=== PATIENT | female | born 1970 | race Caucasian/White ===

== ENCOUNTER 2017-12-19 14:03 | Emergency (ER) | payer SELFPAY ==
[2017-12-19] MEDS ORDERED: FENTANYL CITRATE INJ/PF 100 MCG/2 ML AMPUL IV ONE ×2 (14:40→15:33)
[2017-12-19] MEDS ORDERED: RINGERS SOLUTION,LACTATED 1,000 ML IV ONE (14:40)
[2017-12-19] MEDS ORDERED: ONDANSETRON HCL INJ/PF 4 MG/2 ML SDV IV ONE (14:40)
--- NOTE | 2017-12-19 14:42 | ER Document Report ---
ED Medical Screen (RME) - General Chief Complaint: Possible Kidney Stone Stated Complaint: FLANK PAIN Time Seen by Provider: 12/19/17 14:36 Notes: RAPID MEDICAL EVALUATION DISCLOSURE I have seen this patient as part of a Rapid Medical Evaluation and, if applicable, placed any initially appropriate orders. The patient will be seen and fully evaluated, including a full history and physical exam, by a provider ( in Main ED or Fast Track) when a room becomes available. 47-year-old female here with complaints of right back and right lower quadrant abdominal pain that started yesterday and has progressively worsened. She is also having nausea dysuria and darker than usual urine. Denies vomiting diarrhea fevers chills. Has prior history of kidney stones and states this feels very much the same. Last kidney stone was 2 years ago. EXAM Mild to moderate TTP RLQ No CVA tenderness TRAVEL OUTSIDE OF THE [place] IN LAST 30 DAYS: No - Related Data Allergies/Adverse Reactions: No Known Allergies Allergy (Unverified 12/19/17 14:05) Physical Exam - Vital signs Vitals: Temp Pulse Resp BP Pulse Ox 98.3 F 65 14 125/85 97 12/19/17 14:16 12/19/17 14:16 12/19/17 14:16 12/19/17 14:16 12/19/17 14:16 Course - Vital Signs Vital signs: Temp Pulse Resp BP Pulse Ox 98.3 F 65 14 125/85 97 12/19/17 14:16 12/19/17 14:16 12/19/17 14:16 12/19/17 14:16 12/19/17 14:16
[2017-12-19 15:20] LABS: ABSOLUTE EOSINOPHILS # (AUTO) 0.1 10^3/uL (0.0-0.6); ABSOLUTE LYMPHOCYTES (AUTO) 2.5 10^3/uL (0.5-4.7); ABSOLUTE MONOCYTES (AUTO) 0.3 10^3/uL (0.1-1.4); ABSOLUTE NEUT (AUTO) 2.9 10^3/uL (1.7-8.2); APPEARANCE,URINE CLEAR; BASOPHILS % (AUTO) 0.6 % (0-2); BILIRUBIN,URINE NEGATIVE (NEGATIVE); COLOR,URINE STRAW; EOSINOPHILS % (AUTO) 2.1 % (0-6); GLUCOSE, URINE NEGATIVE (NEGATIVE); HEMATOCRIT 42.3 % (36.0-47.0); HEMOGLOBIN 14.6 g/dL (12.0-15.5); KETONES,URINE NEGATIVE (NEGATIVE); LEUKOCYTE ESTERASE,URINE NEGATIVE (NEGATIVE); LYMPHOCYTES % (AUTO) 42.8 % (13-45); MEAN CORPUSCULAR HEMOGLOBIN 31.6 pg (27.0-33.4); MEAN CORPUSCULAR HGB CONC 34.5 g/dL (32.0-36.0); MEAN CORPUSCULAR VOLUME 92 fl (80-97); MONOCYTES % (AUTO) 5.1 % (3-13); NITRITE,URINE NEGATIVE (NEGATIVE); PLATELET COUNT 221 10^3/uL (150-450); PROTEIN,URINE NEGATIVE (NEGATIVE); RED BLOOD COUNT 4.63 10^6/uL (3.72-5.28); RED CELL DISTRIBUTION WIDTH 12.8 % (11.5-14.0); SEGMENTED NEUTROPHILS % (AUTO) 49.4 % (42-78); TOTAL CELLS COUNTED % (AUTO) 100 %; URINE SPECIFIC GRAVITY 1.011; UROBILINOGEN,URINE NEGATIVE mg/dL (<2.0); WHITE BLOOD COUNT 5.8 10^3/uL (4.0-10.5)
[2017-12-19 15:37] LABS: ANION GAP 12 (5-19); BLOOD UREA NITROGEN 14 mg/dL (7-20); CALCIUM 10.1 mg/dL (8.4-10.2); CARBON DIOXIDE 27 mmol/L (22-30); CHLORIDE 106 mmol/L (98-107); GLUCOSE 89 mg/dL (75-110); SODIUM 145.2 mmol/L (137-145)
--- NOTE | 2017-12-19 16:18 | RADIOLOGY REPORT (SQ) ---
EXAM DESCRIPTION: CT LTD RENAL STONE PROTOCOL ON COMPLETED DATE/TIME: 12/19/2017 3:59 pm REASON FOR STUDY: right flank pain COMPARISON: None. TECHNIQUE: CT scan of the abdomen and pelvis performed without intravenous or oral contrast. Images reviewed with lung, soft tissue, and bone windows. Reconstructed coronal and sagittal MPR images revi ewed. All images stored on PACS. All CT scanners at this facility use dose modulation, iterative reconstruction, and/or weight based d osing when appropriate to reduce radiation dose to as low as reasonably achievable (ALARA). [facility]: Dose Right [facility]: CareDose [facility]: Dose Right [facility]: Teradose 4D [facility]: [employer] RADIATION DOSE: mGy. LIMITATIONS: None. FINDINGS: LOWER CHEST: No significant findings. No nodules or infiltrates. NON-CONTRASTED LIVER, SPLEEN, ADRENALS: Evaluation limited by lack of IV contrast. No identified sign ificant masses. PANCREAS: No masses. No peripancreatic inflammatory changes. GALLBLADDER: No identified stones by CT criteria. No inflammatory changes to suggest cholecystitis. RIGHT KIDNEY AND URETER: No suspicious masses. Assessment limited by lack of IV contrast. No signif icant calcifications. No hydronephrosis or hydroureter. LEFT KIDNEY AND URETER: No suspicious masses. Assessment limited by lack of IV contrast. No signifi cant calcifications. No hydronephrosis or hydroureter. AORTA AND RETROPERITONEUM: No aneurysm. No retroperitoneal masses or adenopathy. BOWEL AND PERITONEAL CAVITY: No obvious masses or inflammatory changes. No free fluid. APPENDIX: Status post appendectomy. PELVIS, BLADDER, AND ABDOMINAL WALL:No abnormal masses. No free fluid. Bladder normal. BONES: No significant findings. OTHER: No other significant finding. IMPRESSION: NO SIGNIFICANT OR ACUTE PROCESS IN THE ABDOMEN OR PELVIS. COMMENT: Quality ID # [id number]: Final reports with documentation of one or more dose reduction techniques (e.g., Automated exposure control, adjustment of the mA and/or kV according to patient size, use of iterative reconstruction technique) TECHNICAL DOCUMENTATION: JOB ID: [id number] [employer]- All Rights Reserved Reading location - IP/workstation name: [email or web address]
--- NOTE | 2017-12-19 16:36 | ER Document Report ---
ED GI/ - General Chief Complaint: Possible Kidney Stone Stated Complaint: FLANK PAIN Time Seen by Provider: 12/19/17 14:36 Mode of Arrival: Ambulatory Information source: Patient Notes: Patient is a 47-year-old female who presents to the ER today for right flank pain that started yesterday radiating around to the right lower abdomen. Patient admits that it is difficult to urinate but denies any blood in her urine or burning with urination. Patient has a history of kidney stones states that this feels exactly the same. She denies any vomiting but admits to nausea. She denies any fevers or chills although she is going through menopause and has hot flashes. TRAVEL OUTSIDE OF THE [place] IN LAST 30 DAYS: No - Related Data Allergies/Adverse Reactions: No Known Allergies Allergy (Unverified 12/19/17 14:05) Home Medications: no medications Past Medical History - General Information source: Patient - Social History Smoking Status: Current Every Day Smoker Chew tobacco use (# tins/day): No Frequency of alcohol use: None Drug Abuse: None Family History: Reviewed & Not Pertinent Patient has suicidal ideation: No Patient has homicidal ideation: No Renal/ Medical History: Reports: Hx Kidney Stones. Denies: Hx Peritoneal Dialysis Past Surgical History: Reports: Hx Hysterectomy Review of Systems - Review of Systems Constitutional: No symptoms reported EENT: No symptoms reported Cardiovascular: No symptoms reported Respiratory: No symptoms reported Gastrointestinal: No symptoms reported Genitourinary: See HPI Female Genitourinary: No symptoms reported Musculoskeletal: No symptoms reported Skin: No symptoms reported Hematologic/Lymphatic: No symptoms reported Neurological/Psychological: No symptoms reported Physical Exam - Vital signs Vitals: Temp Pulse Resp BP Pulse Ox 98.3 F 65 14 125/85 97 12/19/17 14:16 12/19/17 14:16 12/19/17 14:16 12/19/17 14:16 12/19/17 14:16 - Notes Notes: PHYSICAL EXAMINATION: GENERAL: Uncomfortable appearing, but in no acute distress. HEAD: Atraumatic, normocephalic. EYES: Pupils equal round and reactive to light, extraocular movements intact, sclera anicteric, conjunctiva are normal. NECK: Normal range of motion, supple without lymphadenopathy LUNGS: CTAB and equal. No wheezes rales or rhonchi. HEART: Regular rate and rhythm without murmurs ABDOMEN: Soft, suprapubic and right lower quadrant tenderness. No guarding, no rebound BACK: no vertebral tenderness, normal ROM GI/: Right CVA tenderness EXTREMITIES: Normal range of motion, no pitting edema. No cyanosis. NEUROLOGICAL: Cranial nerves grossly intact. Normal sensory/motor exams. PSYCH: Normal mood, normal affect. SKIN: Warm, Dry, normal turgor, no rashes or lesions noted Course - Re-evaluation Re-evalutation: 12/19/17 16:50 Urinalysis reveals moderate amount of blood, patient reports migration from the right flank to the right lower quadrant, appendix surgically absent on CAT scan today, otherwise CAT scan without contrast reveals no acute pathology such as a stone. Patient has received IV fluids, pain medication and nausea medication and is feeling better. I did give her urology follow-up and she will go home with a strainer as well as Flomax, pain medication and nausea medication if needed. She is advised to follow-up with urology in 7 days if pain continues and she feels like she is not passing the stone. - Vital Signs Vital signs: Temp Pulse Resp BP Pulse Ox 98.2 F 61 13 137/88 H 100 12/19/17 17:22 12/19/17 17:22 12/19/17 17:22 12/19/17 17:22 12/19/17 17:22 - Laboratory Result Diagrams: 12/19/17 15:05 12/19/17 15:05 Laboratory results interpreted by me: 12/19/17 12/19/17 15:05 15:05 Sodium 145.2 H Urine Blood MODERATE H Discharge - Discharge Clinical Impression: Kidney stone Condition: Stable Disposition: HOME, SELF-CARE Additional Instructions: Return immediately for any new or worsening symptoms. Follow up with primary care provider, call tomorrow to make followup appointment. Prescriptions: Ondansetron [Zofran Odt 4 mg Tablet] 1 - 2 tab PO Q4H PRN #15 tab.rapdis PRN Reason: For Nausea/Vomiting Oxycodone HCl/Acetaminophen [Percocet 5-325 mg Tablet] 1 - 2 tab PO Q4H PRN #15 tablet PRN Reason: Tamsulosin HCl [Flomax 0.4 mg Cap.sr] 0.4 mg PO DAILY #7 cap.sr.24h Forms: Return to Work Referrals: BRANDIE ACKERMAN, [TERENCE BURTON] - Follow up as needed
[2017-12-19 17:25] VITALS: BP 137/88
== END 2017-12-19 17:24 | disposition home or self-care (01) ==
LOC: ER 14:03
DX: N20.0 Calculus of kidney (principal); R10.31 Right lower quadrant pain; F17.200 Nicotine dependence, unspecified, uncomplicated; Z87.442 Personal history of urinary calculi; Z90.710 Acquired absence of both cervix and uterus
CPT/HCPCS: 96376; 99284; 96361; 96374; 96375; 36415; 85025; 81025; 80048; 81001; 76380; J3010; J2405; J7120

== ENCOUNTER 2018-02-22 06:13 | Emergency (ER) | payer SELFPAY ==
[2018-02-22 07:02] LABS: APPEARANCE,URINE CLEAR; BILIRUBIN,URINE NEGATIVE (NEGATIVE); COLOR,URINE YELLOW; GLUCOSE, URINE NEGATIVE (NEGATIVE); KETONES,URINE NEGATIVE (NEGATIVE); LEUKOCYTE ESTERASE,URINE NEGATIVE (NEGATIVE); NITRITE,URINE NEGATIVE (NEGATIVE); PROTEIN,URINE NEGATIVE (NEGATIVE); URINE SPECIFIC GRAVITY 1.011; UROBILINOGEN,URINE NEGATIVE mg/dL (<2.0)
[2018-02-22] MEDS ORDERED: OXYCODONE-ACETAMINOPHEN 5-325 MG TABLET PO ONE (07:45)
--- NOTE | 2018-02-22 08:32 | RADIOLOGY REPORT (SQ) ---
EXAM DESCRIPTION: CHEST 2 VIEWS COMPLETED DATE/TIME: 02/22/2018 8:21 am REASON FOR STUDY: left upper back pain, hematuria, hx stones COMPARISON: None. EXAM PARAMETERS: NUMBER OF VIEWS: two views TECHNIQUE: Digital Frontal and Lateral radiographic views of the chest acquired. RADIATION DOSE: NA LIMITATIONS: none FINDINGS: LUNGS AND PLEURA: No opacities, masses or pneumothorax. No pleural effusion. MEDIASTINUM AND HILAR STRUCTURES: No masses or contour abnormalities. HEART AND VASCULAR STRUCTURES: Heart normal size. No evidence for failure. BONES: No acute findings. HARDWARE: None in the chest. OTHER: No other significant finding. IMPRESSION: NO ACUTE RADIOGRAPHIC FINDING IN THE CHEST. TECHNICAL DOCUMENTATION: JOB ID: [id number] [employer]- All Rights Reserved Reading location - IP/workstation name: [email or web address]
--- NOTE | 2018-02-22 08:34 | RADIOLOGY REPORT (SQ) ---
EXAM DESCRIPTION: KUB/ABDOMEN (SINGLE VIEW) COMPLETED DATE/TIME: 02/22/2018 8:21 am REASON FOR STUDY: left upper back pain, hematuria, hx stones COMPARISON: None. NUMBER OF VIEWS: One view. TECHNIQUE: Supine radiographic image of the abdomen acquired. LIMITATIONS: None. FINDINGS: BOWEL GAS PATTERN: There is scattered gas and fecal material within the colon. Scattered small bowel gas seen. No pneumoperitoneum. CALCIFICATIONS: No suspicious calcifications. SOFT TISSUES: No gross mass or suggestion of organomegaly. HARDWARE: None in the abdomen. BONES: No acute fracture. No worrisome bone lesions. OTHER: No other significant finding. IMPRESSION: Nonspecific bowel-gas pattern. TECHNICAL DOCUMENTATION: JOB ID: [id number] 2010 [employer]- All Rights Reserved Reading location - IP/workstation name: [email or web address]
--- NOTE | 2018-02-22 09:25 | ER Document Report ---
ED Neck/Back Problem - General Chief Complaint: Back Pain Stated Complaint: BACK PAIN Time Seen by Provider: 02/22/18 07:10 Mode of Arrival: Ambulatory Information source: Patient Notes: Patient is a 47-year-old female who has a history of kidney stones who presents to the ER today for left upper back/flank pain radiating around to the left side since yesterday. Patient admits to nausea but no vomiting. She denies any dysuria but states it is darker in color and she thinks it may be blood. Patient denies any vaginal bleeding, abnormal vaginal discharge, difficulty with breathing or taking a deep breath, history of pancreatitis, alcohol drinking. TRAVEL OUTSIDE OF THE [place] IN LAST 30 DAYS: No - Related Data Allergies/Adverse Reactions: No Known Allergies Allergy (Unverified 12/19/17 14:05) Home Medications: pt denies any home meds Past Medical History - General Information source: Patient - Social History Smoking Status: Current Every Day Smoker Chew tobacco use (# tins/day): No Frequency of alcohol use: None Drug Abuse: None Family History: Reviewed & Not Pertinent Patient has suicidal ideation: No Patient has homicidal ideation: No Renal/ Medical History: Reports: Hx Kidney Stones. Denies: Hx Peritoneal Dialysis Past Surgical History: Reports: Hx Appendectomy, Hx Hysterectomy Review of Systems - Review of Systems Constitutional: No symptoms reported EENT: No symptoms reported Cardiovascular: No symptoms reported Respiratory: No symptoms reported Gastrointestinal: No symptoms reported Genitourinary: See HPI Female Genitourinary: No symptoms reported Musculoskeletal: No symptoms reported Skin: No symptoms reported Hematologic/Lymphatic: No symptoms reported Neurological/Psychological: No symptoms reported Physical Exam - Vital signs Vitals: Temp Pulse Resp BP Pulse Ox 97.9 F 72 18 123/88 H 97 02/22/18 06:19 02/22/18 06:19 02/22/18 06:19 02/22/18 06:19 02/22/18 06:19 - Notes Notes: PHYSICAL EXAMINATION: GENERAL: Uncomfortable appearing, but in no acute distress. HEAD: Atraumatic, normocephalic. EYES: Pupils equal round and reactive to light, extraocular movements intact, sclera anicteric, conjunctiva are normal. NECK: Normal range of motion, supple without lymphadenopathy LUNGS: CTAB and equal. No wheezes rales or rhonchi. HEART: Regular rate and rhythm without murmurs ABDOMEN: Soft, no tenderness. No guarding, no rebound BACK: no vertebral tenderness, normal ROM GI/: Left CVA tenderness EXTREMITIES: Normal range of motion, no pitting edema. No cyanosis. NEUROLOGICAL: Cranial nerves grossly intact. Normal sensory/motor exams. PSYCH: Normal mood, normal affect. SKIN: Warm, Dry, normal turgor, no rashes or lesions noted Course - Re-evaluation Re-evalutation: 02/23/18 11:08 Urinalysis shows large amount of blood no signs of infection. Abdominal KUB and chest x-ray reports no acute pathology. I will treat patient for probable kidney stone and have her follow-up with urology. She has never had to have surgery to remove kidney stone she is always passed them on her own. - Vital Signs Vital signs: Temp Pulse Resp BP Pulse Ox 97.5 F 58 L 18 142/82 H 100 02/22/18 09:35 02/22/18 09:35 02/22/18 09:35 02/22/18 09:35 02/22/18 09:35 - Laboratory Laboratory results interpreted by me: 02/22/18 06:48 Urine Blood MODERATE H Discharge - Discharge Clinical Impression: Upper back pain on left side Condition: Stable Disposition: HOME, SELF-CARE Additional Instructions: Return immediately for any new or worsening symptoms. Follow up with primary care provider, call tomorrow to make followup appointment. Prescriptions: Hydrocodone/Acetaminophen [[place] 5-325 mg Tablet] 1 tab PO Q4 PRN #15 tablet PRN Reason: Forms: Return to Work Referrals: BRANDIE ACKERMAN DO [TERENCE BURTON] - Follow up as needed
[2018-02-22 10:11] VITALS: BP 142/82
== END 2018-02-22 09:37 | disposition home or self-care (01) ==
LOC: ER 06:13
DX: M54.89 Other dorsalgia (principal); R10.9 Unspecified abdominal pain; R31.9 Hematuria, unspecified; R11.0 Nausea; F17.200 Nicotine dependence, unspecified, uncomplicated; Z87.442 Personal history of urinary calculi; Z90.49 Acquired absence of other specified parts of digestive tract; Z90.710 Acquired absence of both cervix and uterus
CPT/HCPCS: 71046; 74018; 81001; 99284

== ENCOUNTER 2018-05-17 22:31 | Emergency (ER) | payer SELFPAY ==
[2018-05-17] MEDS ORDERED: ONDANSETRON HCL INJ/PF 4 MG/2 ML SDV IV ONE (23:09)
[2018-05-17] MEDS ORDERED: KETOROLAC TROMETHAMINE INJ/PF 30 MG/1 ML SDV IV ONE (23:09)
[2018-05-17] MEDS ORDERED: NORMAL SALINE 1000 ML 1,000 ML IV ONE (23:09)
--- NOTE | 2018-05-17 23:09 | ER Document Report ---
ED General - General Chief Complaint: Flank Pain Stated Complaint: PAINFUL URINATION Time Seen by Provider: 05/17/18 22:55 Notes: Patient is a 47-year-old female without chronic medical problems who presents with 2-3 days of bilateral flank pain, worse on the right with associated urinary urgency and hesitancy. She reports this feels similar to when she has been diagnosed with kidney stones in the past. Nothing improves or worsens her pain which she does describe as a stabbing, aching, constant pain to her bilateral flanks and suprapubic region. She has not noted any hematuria or cloudiness to the urine. No fever or constitutional symptoms. She has not seen her general doctor regarding today's concerns. TRAVEL OUTSIDE OF THE [place] IN LAST 30 DAYS: No - Related Data Allergies/Adverse Reactions: No Known Allergies Allergy (Unverified 12/19/17 14:05) Past Medical History - General Information source: Patient - Social History Smoking Status: Current Every Day Smoker Frequency of alcohol use: None Drug Abuse: None Family History: Reviewed & Not Pertinent Renal/ Medical History: Reports: Hx Kidney Stones. Denies: Hx Peritoneal Dialysis Past Surgical History: Reports: Hx Appendectomy, Hx Hysterectomy Review of Systems - Review of Systems Notes: Constitutional: Negative for fever. HENT: Negative for sore throat. Eyes: Negative for visual changes. Cardiovascular: Negative for chest pain. Respiratory: Negative for shortness of breath. Gastrointestinal: Positive for bilateral flank pain and nausea Genitourinary: Positive for dysuria. Musculoskeletal: Negative for back pain. Skin: Negative for rash. Neurological: Negative for headaches, weakness or numbness. 10 point ROS negative except as marked above and in HPI. Physical Exam - Vital signs Vitals: Temp Pulse Resp BP Pulse Ox 98.3 F 77 16 134/91 H 98 05/17/18 22:50 05/17/18 22:50 05/17/18 22:50 05/17/18 22:50 05/17/18 22:50 Interpretation: Normal Notes: PHYSICAL EXAMINATION: GENERAL: Well-appearing, well-nourished and in no acute distress. HEAD: Atraumatic, normocephalic. EYES: Pupils equal round and reactive to light, extraocular movements intact, sclera anicteric, conjunctiva are normal. ENT: nares patent, oropharynx clear without exudates. Moist mucous membranes. NECK: Normal range of motion, supple without lymphadenopathy LUNGS: Breath sounds clear to auscultation bilaterally and equal. No wheezes rales or rhonchi. HEART: Regular rate and rhythm without murmurs ABDOMEN: Soft, nontender, normoactive bowel sounds. No guarding, no rebound. No masses appreciated. Bilateral CVA tenderness slightly worse than the right. EXTREMITIES: Normal range of motion, no pitting or edema. No cyanosis. NEUROLOGICAL: No focal neurological deficits. Moves all extremities spontaneously and on command. PSYCH: Normal mood, normal affect. SKIN: Warm, Dry, normal turgor, no rashes or lesions noted. Course - Re-evaluation Re-evalutation: 05/17/18 23:08 Patient presents with 24 hours of bilateral flank pain and suprapubic abdominal pain as well as urinary hesitancy and discomfort. She is otherwise nontoxic in appearance, no focal abdominal tenderness on exam. Mild bilateral flank tenderness worse towards the right. She has been seen twice within this year for similar presentations, had normal CT scan and no evidence of neither pyelonephritis nor kidney stones. Will obtain labs, provide IV fluids, Toradol and reassess 05/18/18 00:22 Labs, urinalysis completely unremarkable. Repeat abdominal exam remains benign without any focal tenderness. This appears very similar to patient's previous presentations in which she had flank tenderness but had no findings on imaging or laboratories. I recommended outpatient urology follow-up. At this point based on her labs, vitals, history I do not suspect any acute life-threatening pathology. I specifically do not suspect an acute appendicitis, biliary pathology, pancreatitis, nephrolithiasis, bowel obstruction or bowel perforation. At this time will discharge with return precautions and follow-up recommendations. Verbal discharge instructions given a the bedside and opportunity for questions given. Medication warnings reviewed. Patient is in agreement with this plan and has verbalized understanding of return precautions and the need for primary care follow-up in the next 24-72 hours. - Vital Signs Vital signs: Temp Pulse Resp BP Pulse Ox 97.6 F 52 L 17 156/89 H 100 05/18/18 00:39 05/18/18 00:39 10 00:39 05/18/18 00:39 05/18/18 00:39 - Laboratory Result Diagrams: 05/17/18 23:10 05/17/18 23:10 Laboratory results interpreted by me: 05/17/18 05/17/18 23:10 23:10 Glucose 65 L Calcium 10.3 H Urine Blood MODERATE H Urine Urobilinogen 2.0 H Discharge - Discharge Clinical Impression: Flank pain, Dysuria Condition: Good Disposition: HOME, SELF-CARE Additional Instructions: Your urine do not suggest either an infection or a kidney stone at this point. You are being treated empirically with antibiotics for possible infection based on your symptoms and a urine culture has been sent. Please follow-up with urology within the next 1-2 days. Return to emergency department immediately if you develop a fever greater than 100.4 F, nausea, vomiting, worsening pain, or any other symptoms that are worrisome to you. For your pain: Take ibuprofen 600 mg and acetaminophen 1000 mg every 6 hours together as needed for pain. Prescriptions: Cephalexin Monohydrate [Keflex 500 mg Capsule] 500 mg PO Q6H 7 Days capsule
[2018-05-17 23:22] LABS: HEMOGLOBIN 14.1 g/dL (12.0-15.5); MEAN CORPUSCULAR HEMOGLOBIN 32.1 pg (27.0-33.4); MEAN CORPUSCULAR HGB CONC 35.2 g/dL (32.0-36.0); MEAN CORPUSCULAR VOLUME 91 fl (80-97); PLATELET COUNT 196 10^3/uL (150-450); WHITE BLOOD COUNT 7.5 10^3/uL (4.0-10.5)
[2018-05-17 23:24] LABS: APPEARANCE,URINE CLEAR; BILIRUBIN,URINE NEGATIVE (NEGATIVE); COLOR,URINE YELLOW; GLUCOSE, URINE NEGATIVE (NEGATIVE); KETONES,URINE NEGATIVE (NEGATIVE); LEUKOCYTE ESTERASE,URINE NEGATIVE (NEGATIVE); NITRITE,URINE NEGATIVE (NEGATIVE); PROTEIN,URINE NEGATIVE (NEGATIVE); URINE SPECIFIC GRAVITY 1.016
[2018-05-17 23:32] LABS: ANION GAP 11 (5-19); BLOOD UREA NITROGEN 12 mg/dL (7-20); CALCIUM 10.3 mg/dL (8.4-10.2); CARBON DIOXIDE 25 mmol/L (22-30); CHLORIDE 105 mmol/L (98-107); GLUCOSE 65 mg/dL (75-110); POTASSIUM 3.8 mmol/L (3.6-5.0); SODIUM 141.1 mmol/L (137-145)
[2018-05-18] MEDS ORDERED: CEPHALEXIN 500 MG CAPSULE PO ONE (00:22)
[2018-05-18 00:44] VITALS: BP 156/89
== END 2018-05-18 00:38 | disposition home or self-care (01) ==
LOC: ER 22:31
DX: R10.30 Lower abdominal pain, unspecified (principal); R10.9 Unspecified abdominal pain; R30.0 Dysuria; R39.15 Urgency of urination; R39.11 Hesitancy of micturition; F17.200 Nicotine dependence, unspecified, uncomplicated
CPT/HCPCS: 99284; 96361; 96374; 96375; 36415; 87086; 85027; 80048; 81001; J1885; J2405; J7030

== ENCOUNTER 2019-03-10 16:10 | Emergency (ER) | payer SELFPAY ==
[2019-03-10 16:19] VITALS: BP 133/95
[2019-03-10] MEDS ORDERED: ONDANSETRON HCL INJ/PF 4 MG/2 ML SDV IV ONE (17:51)
[2019-03-10] MEDS ORDERED: NORMAL SALINE 1000 ML 1,000 ML IV ONE (17:51)
[2019-03-10] MEDS ORDERED: MORPHINE SULFATE 10 MG/ML INJ IV ONE ×2 (17:51→20:00)
--- NOTE | 2019-03-10 18:38 | ER Document Report ---
ED Medical Screen (RME) - General Chief Complaint: Abdominal Pain Stated Complaint: ABDOMINAL PAIN Time Seen by Provider: 03/10/19 17:43 Notes: Patient is a 48-year-old female who presents to the emergency department with chief complaints of left lower abdominal pain. States her pain started this morning. She had a normal bowel movement this morning. Denies any family history of bowel cancer. Denies any vomiting, but admits to some nausea. She really has not been eating today. Denies any vaginal discharge or dysuria. She had a hysterectomy with a left oophorectomy in 2003. Exam: Mildly tender left lower abdomen. I have greeted and performed a rapid initial assessment of this patient. A comprehensive ED assessment and evaluation of the patient, analysis of test results and completion of medical decision making process will be conducted by an additional ED providers. TRAVEL OUTSIDE OF THE [place] IN LAST 30 DAYS: No - Related Data Allergies/Adverse Reactions: No Known Allergies Allergy (Verified 03/10/19 16:11) Past Medical History - Social History Frequency of alcohol use: None Drug Abuse: None Renal/ Medical History: Reports: Hx Kidney Stones. Denies: Hx Peritoneal Dialysis Past Surgical History: Reports: Hx Appendectomy, Hx Hysterectomy Physical Exam - Vital signs Vitals: Temp Pulse Resp BP Pulse Ox 98.0 F 76 16 133/95 H 97 03/10/19 16:17 03/10/19 16:17 03/10/19 16:17 03/10/19 16:17 03/10/19 16:17 Course - Vital Signs Vital signs: Temp Pulse Resp BP Pulse Ox 98.0 F 76 16 133/95 H 97 03/10/19 16:17 03/10/19 16:17 03/10/19 16:17 03/10/19 16:17 03/10/19 16:17
[2019-03-10 18:48] LABS: ABSOLUTE BASOPHILS # (AUTO) 0.1 10^3/uL (0.0-0.2); ABSOLUTE EOSINOPHILS # (AUTO) 0.1 10^3/uL (0.0-0.6); ABSOLUTE LYMPHOCYTES (AUTO) 3.1 10^3/uL (0.5-4.7); ABSOLUTE MONOCYTES (AUTO) 0.3 10^3/uL (0.1-1.4); ABSOLUTE NEUT (AUTO) 3.3 10^3/uL (1.7-8.2); BASOPHILS % (AUTO) 0.8 % (0-2); EOSINOPHILS % (AUTO) 1.4 % (0-6); HEMATOCRIT 42.3 % (36.0-47.0); HEMOGLOBIN 14.6 g/dL (12.0-15.5); LYMPHOCYTES % (AUTO) 45.5 % (13-45); MEAN CORPUSCULAR HEMOGLOBIN 31.6 pg (27.0-33.4); MEAN CORPUSCULAR HGB CONC 34.6 g/dL (32.0-36.0); MEAN CORPUSCULAR VOLUME 92 fl (80-97); MONOCYTES % (AUTO) 4.2 % (3-13); PLATELET COUNT 202 10^3/uL (150-450); RED BLOOD COUNT 4.63 10^6/uL (3.72-5.28); RED CELL DISTRIBUTION WIDTH 13.3 % (11.5-14.0); SEGMENTED NEUTROPHILS % (AUTO) 48.1 % (42-78); TOTAL CELLS COUNTED % (AUTO) 100 %; WHITE BLOOD COUNT 6.9 10^3/uL (4.0-10.5)
[2019-03-10 19:02] LABS: APPEARANCE,URINE CLEAR; BILIRUBIN,URINE NEGATIVE (NEGATIVE); COLOR,URINE YELLOW; GLUCOSE, URINE NEGATIVE (NEGATIVE); KETONES,URINE NEGATIVE (NEGATIVE); LEUKOCYTE ESTERASE,URINE NEGATIVE (NEGATIVE); NITRITE,URINE NEGATIVE (NEGATIVE); PROTEIN,URINE NEGATIVE (NEGATIVE); URINE SPECIFIC GRAVITY 1.024; UROBILINOGEN,URINE NEGATIVE mg/dL (<2.0)
[2019-03-10 19:15] LABS: ALBUMIN 4.9 g/dL (3.5-5.0); ALKALINE PHOSPHATASE 75 U/L (38-126); ANION GAP 8 (5-19); ASPARTATE AMINO TRANSFERASE 41 U/L (14-36); BILIRUBIN,DIRECT 0.3 mg/dL (0.0-0.4); BILIRUBIN,TOTAL 0.7 mg/dL (0.2-1.3); BLOOD UREA NITROGEN 15 mg/dL (7-20); CALCIUM 10.8 mg/dL (8.4-10.2); CARBON DIOXIDE 29 mmol/L (22-30); CHLORIDE 106 mmol/L (98-107); GLUCOSE 90 mg/dL (75-110); TOTAL PROTEIN 7.7 g/dL (6.3-8.2)
--- NOTE | 2019-03-10 20:35 | ER Document Report ---
ED GI/ - General Chief Complaint: Abdominal Pain Stated Complaint: ABDOMINAL PAIN Time Seen by Provider: 03/10/19 17:43 Notes: Patient is a 48-year-old female who presents to the emergency department with a chief complaint of left lower quadrant pain. Patient states she woke up this morning around 5 AM and noticed a tight sharp constant pain to the left lower quadrant. Patient states she has had nausea without vomiting or diarrhea. Pat ient reports a decreased appetite due to the pain. Patient denies vaginal bleeding or discharge. Patient does report having a hysterectomy with a left oophorectomy. Patient denies fever or urinary symptoms. Patient states she has never had a colonoscopy in the past. Patient states her last bowel movement was earlier today and was normal for her. Patient denies of blood in the stool. Patient did take an ibuprofen without relief. Patient states 1 month ago she did notice some gelatin type consistency in her stool but did not report blood in the stool. Patient denies change in her diet. TRAVEL OUTSIDE OF THE [place] IN LAST 30 DAYS: No - Related Data Allergies/Adverse Reactions: No Known Allergies Allergy (Verified 03/10/19 16:11) Past Medical History - General Information source: Patient - Social History Smoking Status: Current Every Day Smoker Cigarette use (# per day): Yes - 1 ppd Smoking Education Provided: Yes Frequency of alcohol use: None Drug Abuse: None Lives with: Family Family History: Reviewed & Not Pertinent Patient has suicidal ideation: No Patient has homicidal ideation: No - Past Medical History Cardiac Medical History: Reports: None Pulmonary Medical History: Reports: None EENT Medical History: Reports: None Neurological Medical History: Reports: None Endocrine Medical History: Reports: None Renal/ Medical History: Reports: Hx Kidney Stones. Denies: Hx Peritoneal Dialysis Malignancy Medical History: Reports: None GI Medical History: Reports: None Musculoskeletal Medical History: Reports None Skin Medical History: Reports None Psychiatric Medical History: Reports: None Traumatic Medical History: Reports: None Infectious Medical History: Reports: None Past Surgical History: Reports: Hx Appendectomy, Hx Hysterectomy Review of Systems - Review of Systems Constitutional: No symptoms reported EENT: No symptoms reported Cardiovascular: No symptoms reported Respiratory: No symptoms reported Gastrointestinal: See HPI Genitourinary: No symptoms reported Female Genitourinary: No symptoms reported Musculoskeletal: No symptoms reported Skin: No symptoms reported Hematologic/Lymphatic: No symptoms reported Neurological/Psychological: No symptoms reported Physical Exam - Vital signs Vitals: Temp Pulse Resp BP Pulse Ox 98.0 F 76 16 133/95 H 97 03/10/19 16:17 03/10/19 16:17 03/10/19 16:17 03/10/19 16:17 03/10/19 16:17 Interpretation: Normal - Notes Notes: GENERAL: Well-appearing, well-nourished and in no acute distress. HEAD: Atraumatic, normocephalic. EYES: Pupils equal round and reactive to light, extraocular movements intact, sclera anicteric, conjunctiva are normal. ENT: TMs normal, nares patent, oropharynx clear without exudates. Moist mucous membranes. NECK: Normal range of motion, supple without lymphadenopathy or JVD. LUNGS: Breath sounds clear to auscultation bilaterally and equal. No wheezes rales or rhonchi. HEART: Regular rate and rhythm without murmurs, rubs or gallops. ABDOMEN: Soft, LLQ tenderness, normoactive bowel sounds. No guarding, no rebound. No masses appreciated. BACK: No cervical, thoracic, lumbar midline tenderness. No saddle anesthesia, normal distal neurovascular exam. GENITOURINARY: Deferred. EXTREMITIES: Normal range of motion, no pitting or edema. No clubbing or cyanosis. NEUROLOGICAL: Cranial nerves II through XII grossly intact. Normal speech, normal gait. PSYCH: Normal mood, normal affect. SKIN: Warm, Dry, normal turgor, no rashes or lesions noted. Course - Re-evaluation Re-evalutation: 03/10/19 20:34 Patient does have significant left lower quadrant tenderness. Patient denies a history of diverticulitis. Labs are unremarkable the urinalysis did not show an infection. I will obtain a CT of the abdomen with IV and oral contrast to rule out diverticulitis or perforation. Patient is in agreement with this plan. I did inform the patient if her CT scan is negative I will refer her to gastroenterology as she may require a colonoscopy if she continues to have this discomfort. 03/10/19 23:49 I did inform the patient of her negative CT results. I did inform her she may have a fatty liver. I did inform the patient that ultimately she may need a colonoscopy. I will refer her to gastroenterology. I did inform the patient to return immediately if her pain changes, becomes more consistent and severe, she develops rectal bleeding, vomiting develops a fever or any concerning signs or symptoms. - Vital Signs Vital signs: Temp Pulse Resp BP Pulse Ox 98.0 F 76 16 133/95 H 97 03/10/19 16:17 03/10/19 16:17 03/10/19 16:17 03/10/19 16:17 03/10/19 16:17 - Laboratory Result Diagrams: 03/10/19 18:40 03/10/19 18:40 Laboratory results interpreted by me: 03/10/19 03/10/19 03/10/19 18:40 18:40 18:40 Lymphocytes % 45.5 H Calcium 10.8 H AST 41 H Urine Blood MODERATE H 03/10/19 20:35 Laboratory 03/10/19 03/10/19 03/10/19 18:40 18:40 18:40 WBC 6.9 RBC 4.63 Hgb 14.6 Hct 42.3 MCV 92 MCH 31.6 MCHC 34.6 RDW 13.3 Plt Count 202 Seg Neutrophils % 48.1 Lymphocytes % 45.5 H Monocytes % 4.2 Eosinophils % 1.4 Basophils % 0.8 Absolute Neutrophils 3.3 Absolute Lymphocytes 3.1 Absolute Monocytes 0.3 Absolute Eosinophils 0.1 Absolute Basophils 0.1 Sodium 143.4 Potassium 5.0 Chloride 106 Carbon Dioxide 29 Anion Gap 8 BUN 15 Creatinine 0.70 Est GFR ( Amer) > 60 Est GFR (Non-Af Amer) > 60 Glucose 90 Calcium 10.8 H Total Bilirubin 0.7 Direct Bilirubin 0.3 Neonat Total Bilirubin Not Reportable Neonat Direct Bilirubin Not Reportable Neonat Indirect Bili Not Reportable AST 41 H ALT 25 Alkaline Phosphatase 75 Total Protein 7.7 Albumin 4.9 Urine Color YELLOW Urine Appearance CLEAR Urine pH 5.0 Ur Specific [place] 1.024 Urine Protein NEGATIVE Urine Glucose (UA) NEGATIVE Urine Ketones NEGATIVE Urine Blood MODERATE H Urine Nitrite NEGATIVE Urine Bilirubin NEGATIVE Urine Urobilinogen NEGATIVE Ur Leukocyte Esterase NEGATIVE Urine WBC (Auto) 2 Urine RBC (Auto) 4 U Hyaline Cast (Auto) 1 Squamous Epi Cells Auto <1 Urine Mucus (Auto) RARE Urine Ascorbic Acid NEGATIVE Patient's lab work does not show a leukocytosis or anemia. Patient does not have an alteration in her electrolytes or kidney function. Patient's liver enzymes are normal despite having a slightly elevated AST. Patient's urine did show moderate amount of blood but with only 4 red blood cells. Patient does not have a urinary tract infection. - Diagnostic Test Radiology results interpreted by me: 03/10/19 23:41 Abdomen/Pelvis CT 03/10/19 00:00 IMPRESSION: No acute abnormality within the abdomen or pelvis. Suspect hepatic steatosis. TECHNICAL DOCUMENTATION: Quality ID # 436: Final reports with documentation of one or more dose reduction techniques (e.g., Automated exposure control, adjustment of the mA and/or kV according to patient size, use of iterative reconstruction technique) copyright 2011 [employer]- All Rights Reserved Discharge - Discharge Clinical Impression: Left lower quadrant abdominal pain, Abdominal cramping Condition: Stable Disposition: HOME, SELF-CARE Additional Instructions: Today you were seen in the emergency department for abdominal pain. Your lab work was essentially unremarkable as well as your urine. There are no signs of infection at this time and the CAT scan of your abdomen was also normal. Ultimately you may need to seek services from gastroenterology who may suggest a colonoscopy. I have referred you to Dr. Hale and Dr. Garsia who are local market garden worker. Please return to the emergency department if you develop severe pain that becomes more severe, steady or becomes concentrated in one area, vomiting, blood in stool, fever or if your abdomen becomes more swollen and tender. Abdominal Pain There are many causes of abdominal pain. Pain can mean a serious problem requiring surgery (such as appendicitis). It can also be an innocent problem that goes away on its own (such as a viral infection). Often, time must pass to determine the cause of pain. The physician does not feel that hospitalization is necessary, at present. Things may change within the next 24 hours. Call the doctor or come back for re- examination if any problems occur, such as: (1) Pain that becomes more severe, steady, or becomes concentrated in one specific area. Also, pain that is more severe with movement or coughing. (2) Vomiting that persists or becomes more frequent. (3) Blood in the vomitus, urine, or bowel movements. Blood in the stool may have a tarry or black appearance. (4) Shaking chills or fever greater than 100 degrees F. (5) The abdomen becomes more distended or swollen. (6) Bowel movements cease. (7) Failure to improve as expected. Prescriptions: Dicyclomine HCl [Bentyl 20 mg Tablet] 20 mg PO QID #20 tablet Forms: Smoking Cessation Education Referrals: HARI VILLAGRAN MD [ACTIVE STAFF] - Follow up as needed RUBEN GARSIA MD [ACTIVE STAFF] - Follow up as needed
--- NOTE | 2019-03-10 23:16 | RADIOLOGY REPORT (SQ) ---
EXAM DESCRIPTION: CT ABDOMEN PELVIS WITH IV CONTRAST COMPLETED DATE/TME: 03/10/2019 00:00 CLINICAL HISTORY: 48 years, Female, llq pain COMPARISON: Prior CT from 12/19/2017. TECHNIQUE: Contrast enhanced CT of the abdomen/pelvis was performed. Coronal and sagittal reformations were created. Images stored on PACS. All CT scanners at this facility use dose modulation, iterative reconstruction, and/or weight based dosing when appropriate to reduce radiation dose to as low as reasonably achievable (ALARA). [facility]: Dose Right [facility]: CareDose [facility]: Dose Right [facility]: Teradose 4D [facility]: [employer] LIMITATIONS: None. FINDINGS: Limited evaluation of the lower chest reveals mild bibasilar atelectasis. Liver is diffusely low in attenuation relative to the spleen. No focal liver lesions are appreciated. The spleen, pancreas, gallbladder, and both adrenal glands appear normal. Both kidneys enhance symmetrically. No hydronephrosis or hydroureter. Urinary bladder is well distended and shows no suspicious finding. Small and large bowel appear normal. No evidence of bowel obstruction. Appendix is not visualized. However, no pericecal inflammatory changes are appreciated. Mild calcifications are noted about the bilateral common iliac arteries. No lymphadenopathy or drainable fluid collections. Uterus is absent. Neither ovary is visualized. Bone windows show no destructive osseous lesions. IMPRESSION: No acute abnormality within the abdomen or pelvis. Suspect hepatic steatosis. TECHNICAL DOCUMENTATION: Quality ID # 436: Final reports with documentation of one or more dose reduction techniques (e.g., Automated exposure control, adjustment of the mA and/or kV according to patient size, use of iterative reconstruction technique) copyright 2011 [employer]- All Rights Reserved
[2019-03-10] MEDS ORDERED: DICYCLOMINE HCL INJ 20 MG/2 ML AMPULE IM ONE (23:54)
== END 2019-03-11 01:20 | disposition home or self-care (01) ==
LOC: ER 16:10
DX: R10.32 Left lower quadrant pain (principal); R10.814 Left lower quadrant abdominal tenderness; R11.0 Nausea; R63.0 Anorexia; F17.210 Nicotine dependence, cigarettes, uncomplicated; Z90.49 Acquired absence of other specified parts of digestive tract; Z90.721 Acquired absence of ovaries, unilateral; Z87.442 Personal history of urinary calculi
CPT/HCPCS: 96376; 99284; 96361; 96374; 96375; 36415; 85025; 80053; 81001; 74177; J2270; J2405; J7030

== ENCOUNTER → 2019-05-01 | Outpatient (CLI) | payer OTHER ==
--- NOTE | 2019-05-01 09:07 | WOMENS IMAGING REPORT ---
EXAM DESCRIPTION: [place] BILATERAL SCREEN COMPLETED DATE/TIME: 05/01/2019 8:23 am REASON FOR STUDY: Z12.31 ENCOUNTER FOR SCREENING MAMMOGRAM FOR MALIGNANT NEOPLASM OF BREAST Z12.31 ENCNTR SCREEN MAMMOGRAM FOR MALIGNANT NEOPLASM OF OSMANY COMPARISON: None. EXAM PARAMETERS: Standard craniocaudal and mediolateral oblique views of each breast recorded using digital acquisition. Read with the assistance of CAD. .[facility] - [employer] Version 9.2 LIMITATIONS: None. FINDINGS: No suspicious masses, suspicious calcifications or architectural distortion. No areas of c oncern. IMPRESSION: Negative MAMMOGRAM. BIRADS 1 BREAST DENSITY: b. There are scattered areas of fibroglandular density. BIRAD: ASSESSMENT: 1 NEGATIVE RECOMMENDATION: ROUTINE SCREENING COMMENT: The patient has been notified of the results by letter per MQSA requirements. Additional no tification policies are in place for contacting patient with suspicious or incomplete findings. Quality ID #225: [employer] recommends an annual screening mammogram for women aged 40 years or over. This facility utilizes a reminder system to ensure that all patients receive reminder letters, and/or direct phone calls for appointments. This includes reminders for routine scr eening mammograms, diagnostic mammograms, or other Breast Imaging Interventions when appropriate. Th is patient will be placed in the appropriate reminder system. TECHNICAL DOCUMENTATION: FINDING NUMBER: (1) ASSESSMENT: (1) JOB ID: [id number] [employer]- All Rights Reserved Reading location - IP/workstation name: [email or web address]
== END ==
LOC: WI 07:53
PROVIDERS: ATTEND Family Medicine
DX: Z12.31 Encounter for screening mammogram for malignant neoplasm of breast (principal)
CPT/HCPCS: 77067

== ENCOUNTER 2019-06-26 17:23 | Emergency (ER) | payer OTHER ==
[2019-06-26 17:42] VITALS: BP 139/89
[2019-06-26] MEDS ORDERED: NORMAL SALINE 1000 ML 1,000 ML IV ONE (18:02)
[2019-06-26] MEDS ORDERED: ONDANSETRON HCL INJ/PF 4 MG/2 ML SDV IV ONE (18:03)
[2019-06-26] MEDS ORDERED: MORPHINE SULFATE 10 MG/ML INJ IV ONE (18:03)
--- NOTE | 2019-06-26 18:07 | ER Document Report ---
ED Medical Screen (RME) - General Chief Complaint: Flank Pain Stated Complaint: LEFT FLANK PAIN, ABDOMINAL PAIN Time Seen by Provider: 06/26/19 17:52 Primary Care Provider: VELASQUEZ VENCES MD [Primary Care Provider] - Follow up as needed Notes: Patient is a 48-year-old female who presents the emergency department with left lower quadrant abdominal pain. States that her symptoms started this morning. Denies any dysuria. Patient has history of kidney stones in the past. She has an appointment with GI for a preop colonoscopy. Patient has no family history of colon cancer. Exam: Abdomen very tender in the left lower quadrant. I have greeted and performed a rapid initial assessment of this patient. A comprehensive ED assessment and evaluation of the patient, analysis of test results and completion of medical decision making process will be conducted by an additional ED providers. TRAVEL OUTSIDE OF THE [place] IN LAST 30 DAYS: No - Related Data Allergies/Adverse Reactions: No Known Allergies Allergy (Verified 06/26/19 17:52) Past Medical History - Social History Frequency of alcohol use: None Drug Abuse: None Renal/ Medical History: Reports: Hx Kidney Stones. Denies: Hx Peritoneal Dialysis Malignancy Medical History: Reports: Hx Cervical Cancer Past Surgical History: Reports: Hx Appendectomy, Hx Hysterectomy Physical Exam - Vital signs Vitals: Temp Pulse Resp BP Pulse Ox 97.9 F 66 20 139/89 H 99 06/26/19 17:41 06/26/19 17:41 06/26/19 17:41 06/26/19 17:41 06/26/19 17:41 Course - Vital Signs Vital signs: Temp Pulse Resp BP Pulse Ox 97.9 F 66 20 139/89 H 99 06/26/19 17:41 06/26/19 17:41 06/26/19 17:41 06/26/19 17:41 06/26/19 17:41 Doctor's Discharge - Discharge Referrals: VELASQUEZ VENCES MD [Primary Care Provider] - Follow up as needed
[2019-06-26 18:27] LABS: ABSOLUTE BASOPHILS # (AUTO) 0.1 10^3/uL (0.0-0.2); ABSOLUTE EOSINOPHILS # (AUTO) 0.2 10^3/uL (0.0-0.6); ABSOLUTE LYMPHOCYTES (AUTO) 2.8 10^3/uL (0.5-4.7); ABSOLUTE MONOCYTES (AUTO) 0.3 10^3/uL (0.1-1.4); BASOPHILS % (AUTO) 0.9 % (0-2); EOSINOPHILS % (AUTO) 3.3 % (0-6); HEMATOCRIT 41.5 % (36.0-47.0); HEMOGLOBIN 14.4 g/dL (12.0-15.5); LYMPHOCYTES % (AUTO) 44.3 % (13-45); MEAN CORPUSCULAR HEMOGLOBIN 31.9 pg (27.0-33.4); MEAN CORPUSCULAR HGB CONC 34.8 g/dL (32.0-36.0); MEAN CORPUSCULAR VOLUME 92 fl (80-97); MONOCYTES % (AUTO) 4.4 % (3-13); PLATELET COUNT 198 10^3/uL (150-450); RED BLOOD COUNT 4.53 10^6/uL (3.72-5.28); SEGMENTED NEUTROPHILS % (AUTO) 47.1 % (42-78); TOTAL CELLS COUNTED % (AUTO) 100 %; WHITE BLOOD COUNT 6.4 10^3/uL (4.0-10.5)
[2019-06-26 18:31] LABS: APPEARANCE,URINE CLEAR; BILIRUBIN,URINE NEGATIVE (NEGATIVE); COLOR,URINE YELLOW; GLUCOSE, URINE NEGATIVE (NEGATIVE); KETONES,URINE NEGATIVE (NEGATIVE); PROTEIN,URINE NEGATIVE (NEGATIVE); URINE SPECIFIC GRAVITY 1.015; UROBILINOGEN,URINE NEGATIVE mg/dL (<2.0)
[2019-06-26 18:46] LABS: ALBUMIN 4.5 g/dL (3.5-5.0); ALKALINE PHOSPHATASE 67 U/L (38-126); ANION GAP 8 (5-19); ASPARTATE AMINO TRANSFERASE 29 U/L (14-36); BILIRUBIN,DIRECT 0.1 mg/dL (0.0-0.4); BILIRUBIN,TOTAL 0.4 mg/dL (0.2-1.3); BLOOD UREA NITROGEN 12 mg/dL (7-20); CALCIUM 9.8 mg/dL (8.4-10.2); CARBON DIOXIDE 24 mmol/L (22-30); CHLORIDE 106 mmol/L (98-107); GLUCOSE 85 mg/dL (75-110); POTASSIUM 4.1 mmol/L (3.6-5.0); TOTAL PROTEIN 7.4 g/dL (6.3-8.2)
--- NOTE | 2019-06-26 20:40 | RADIOLOGY REPORT (SQ) ---
EXAM DESCRIPTION: CT ABDOMEN PELVIS WITH IV CONTRAST COMPLETED DATE/TME: 06/26/2019 18:02 CLINICAL HISTORY: 48 years, Female, LLQ abd pain COMPARISON: Prior study from 03/10/2019 TECHNIQUE: Contrast enhanced CT of the abdomen/pelvis was performed. 100 mL of Omnipaque 350 intravenous contrast was administered. Images stored on PACS. All CT scanners at this facility use dose modulation, iterative reconstruction, and/or weight based dosing when appropriate to reduce radiation dose to as low as reasonably achievable (ALARA). [facility]: Dose Right [facility]: CareDose [facility]: Dose Right [facility]: Teradose 4D [facility]: [employer] LIMITATIONS: None. FINDINGS: Limited evaluation of the lower chest reveals bands of opacity about both lower lobes, indicating areas of atelectasis and/or scar. The liver, spleen, pancreas, both adrenal glands, and gallbladder appear normal. Both kidneys enhance symmetrically. However, the left kidney appears to contain a subcentimeter low-density lesion about its interpolar region, too small to accurately characterize. There is no hydronephrosis or hydroureter. The urinary bladder is well distended and shows no suspicious abnormality. Delayed images reveal no suspicious finding. Uterus is absent. Neither ovary is visualized. Small and large bowel appear normal in caliber without areas of focal wall thickening. No definitive evidence of bowel obstruction. Appendix is not visualized; however, no pericecal inflammatory changes are appreciated. Mild calcifications are noted about the abdominal aorta and proximal iliac vessels. No suspicious lymphadenopathy or drainable fluid collections are appreciated. Bone windows show no destructive osseous lesions. IMPRESSION: No acute abnormality within the abdomen or pelvis. TECHNICAL DOCUMENTATION: Quality ID # 436: Final reports with documentation of one or more dose reduction techniques (e.g., Automated exposure control, adjustment of the mA and/or kV according to patient size, use of iterative reconstruction technique) copyright 2010 [employer]- All Rights Reserved
--- NOTE | 2019-06-26 21:45 | ER Document Report ---
Entered by LEANN GARCIA SCRIBE 06/26/191957 Acting as scribe for:POLO DIAZ DO ED GI/ - General Chief Complaint: Flank Pain Stated Complaint: LEFT FLANK PAIN, ABDOMINAL PAIN Time Seen by Provider: 06/26/19 17:52 Primary Care Provider: VELASQUEZ VENCES MD [NO LOCAL MD] - Follow up as needed Mode of Arrival: Ambulatory Information source: Patient Notes: This 48-year-old female presents to the emergency department today with complaints of left-sided upper quadrant abdominal pain with back pain and left flank pain. Patient states that she is seen by [facility] and is scheduled for a colonoscopy on August 06 for chronic abdominal pain. Patient denies any trauma, urinary symptoms, vomiting, or fevers. TRAVEL OUTSIDE OF THE [place] IN LAST 30 DAYS: No - Related Data Allergies/Adverse Reactions: No Known Allergies Allergy (Verified 06/26/19 17:52) Past Medical History - General Information source: Patient - Social History Smoking Status: Current Every Day Smoker Cigarette use (# per day): Yes Frequency of alcohol use: None Drug Abuse: None Family History: Reviewed & Not Pertinent Patient has suicidal ideation: No Patient has homicidal ideation: No Renal/ Medical History: Reports: Hx Kidney Stones Malignancy Medical History: Reports: Hx Cervical Cancer Past Surgical History: Reports: Hx Appendectomy, Hx Hysterectomy Review of Systems - Review of Systems Constitutional: No symptoms reported EENT: No symptoms reported Cardiovascular: No symptoms reported Respiratory: No symptoms reported Gastrointestinal: See HPI, Abdominal pain Genitourinary: See HPI, Flank pain Female Genitourinary: No symptoms reported Musculoskeletal: See HPI, Back pain Skin: No symptoms reported Hematologic/Lymphatic: No symptoms reported Neurological/Psychological: No symptoms reported -: Yes All other systems reviewed and negative Physical Exam - Vital signs Vitals: Temp Pulse Resp BP Pulse Ox 97.9 F 66 20 139/89 H 99 06/26/19 17:41 06/26/19 17:41 06/26/19 17:41 06/26/19 17:41 06/26/19 17:41 Interpretation: Normal - General General appearance: Appears well, Alert - HEENT Head: Normocephalic, Atraumatic Eyes: Normal Pupils: PERRL - Respiratory Respiratory status: No respiratory distress Chest status: Nontender Breath sounds: Normal Chest palpation: Normal - Cardiovascular Rhythm: Regular Heart sounds: Normal auscultation Murmur: No - Abdominal Inspection: Normal Distension: No distension Bowel sounds: Normal Tenderness: Tender - Mild diffuse tenderness Organomegaly: No organomegaly - Back Back: Normal, Nontender, CVA tenderness - L - Extremities General upper extremity: Normal inspection, Nontender, Normal color, Normal ROM, Normal temperature General lower extremity: Normal inspection, Nontender, Normal color, Normal ROM, Normal temperature, Normal weight bearing. No: Crystal's sign - Neurological Neuro grossly intact: Yes Cognition: Normal Orientation: AAOx4 [place] Coma Scale Eye Opening: Spontaneous [place] Coma Scale Verbal: Oriented [place] Coma Scale Motor: Obeys Commands [place] Coma Scale Total: 15 Speech: Normal Motor strength normal: LUE, RUE, LLE, RLE Sensory: Normal - Psychological Associated symptoms: Normal affect, Normal mood - Skin Skin Temperature: Warm Skin Moisture: Dry Skin Color: Normal Course - Re-evaluation Re-evalutation: 06/26/19 21:44 Patient with no abnormalities on blood work. Urine with some blood. No acute findings on CT. Patient will be discharged home with medication for with primarily seems like a back injury. She is to follow-up with her doctor. She already has a follow-up with gastroenterology scheduled. Stable for discharge. Return if any worsening or concerning symptoms. Understands and agrees with plan. - Vital Signs Vital signs: Temp Pulse Resp BP Pulse Ox 97.9 F 66 20 139/89 H 99 06/26/19 17:41 06/26/19 17:41 06/26/19 17:41 06/26/19 17:41 06/26/19 17:41 - Laboratory Result Diagrams: 06/26/19 16:09 06/26/19 16:09 Laboratory results interpreted by me: 06/26/19 18:09 Urine Blood MODERATE H - Diagnostic Test Radiology reviewed: Reports reviewed Discharge - Discharge Clinical Impression: Back pain Qualifiers: Back pain location: low back pain Chronicity: unspecified Back pain laterality: left Sciatica presence: without sciatica Qualified Code(s): M54.5 - Low back pain Abdominal pain Qualifiers: Abdominal location: unspecified location Qualified Code(s): R10.9 - Unspecified abdominal pain Condition: Stable Disposition: HOME, SELF-CARE Instructions: Abdominal Pain ([facility]), Low Back Pain ([facility]) Prescriptions: Cyclobenzaprine HCl [Flexeril 10 mg Tablet] 10 mg PO TIDP PRN #15 tab PRN Reason: Lidocaine [Lidoderm 5% (700 mg) Transdermal Patch] 1 patch TP DAILY #10 a dh..patch Referrals: VELASQUEZ VENCES MD [NO LOCAL MD] - Follow up as needed I personally performed the services described in the documentation, reviewed and edited the documentation which was dictated to the scribe in my presence, and it accurately records my words and actions.
== END 2019-06-26 21:20 | disposition home or self-care (01) ==
LOC: ER 17:23
DX: M54.5 Low back pain (principal); G89.29 Other chronic pain; R10.12 Left upper quadrant pain; F17.210 Nicotine dependence, cigarettes, uncomplicated; Z90.710 Acquired absence of both cervix and uterus
CPT/HCPCS: 99284; 96361; 96374; 96375; 36415; 85025; 80053; 81001; 74177; J2270; J2405; J7030

== ENCOUNTER 2019-09-11 09:21 | Emergency (ER) | payer OTHER ==
[2019-09-11] MEDS ORDERED: KETOROLAC TROMETHAMINE INJ/PF 30 MG/1 ML SDV IV ONE (10:33)
[2019-09-11] MEDS ORDERED: ONDANSETRON HCL INJ/PF 4 MG/2 ML SDV IV ONE (10:33)
--- NOTE | 2019-09-11 10:35 | ER Document Report ---
ED Medical Screen (RME) - General Chief Complaint: Back Pain Stated Complaint: BACK PAIN Time Seen by Provider: 09/11/19 10:30 Primary Care Provider: GILMAR NEWMAN,[facility] [Primary Care Provider] - Follow up as needed Notes: HPI: 49-year-old female presenting with left back and flank pain that began last night. Patient always has nausea which she states she is having evaluated and managed by GI. Patient has prior kidney stone history and has had to have lithotripsy in the past. Last kidney stone was at least 3 years ago. Patient states pain began in the left back region that radiates through the left flank into the left lower quadrant. No dysuria. No fever. I have greeted and performed a rapid initial assessment of this patient. A comprehensive ED assessment and evaluation of the patient, analysis of test results and completion of the medical decision making process will be conducted by additional ED providers PHYSICAL EXAMINATION: GENERAL: Well-appearing, well-nourished and in mild acute distress. HEAD: Atraumatic, normocephalic. EYES: sclera anicteric, conjunctiva are normal. ENT: Moist mucous membranes. NECK: Normal range of motion LUNGS: Normal work of breathing HEART: 2+ radial pulses bilaterally ABD: limited by positioning for exam in triage. Mild left CVA tenderness. Mild tenderness in the left lower quadrant on palpation EXTREMITIES: no pitting or edema. No cyanosis. NEUROLOGICAL: No focal neurological deficits. Moves all extremities spontaneously and on command. PSYCH: Normal mood, normal affect. SKIN: Warm, Dry, normal turgor, no rashes or lesions noted. TRAVEL OUTSIDE OF THE [place] IN LAST 30 DAYS: No - Related Data Allergies/Adverse Reactions: No Known Allergies Allergy (Verified 06/26/19 17:52) Past Medical History Renal/ Medical History: Reports: Hx Kidney Stones. Denies: Hx Peritoneal Dialysis Malignancy Medical History: Reports: Hx Cervical Cancer Past Surgical History: Reports: Hx Appendectomy, Hx Hysterectomy Physical Exam - Vital signs Vitals: Temp Pulse Resp BP Pulse Ox 98.0 F 65 16 135/87 H 100 09/11/19 10:05 09/11/19 10:05 09/11/19 10:05 09/11/19 10:09/11/19 10:05 Course - Vital Signs Vital signs: Temp Pulse Resp BP Pulse Ox 98.0 F 65 16 135/87 H 100 09/11/19 10:05 09/11/19 10:05 09/11/19 10:05 09/11/19 10:05 09/11/19 10:05 Doctor's Discharge - Discharge Referrals: [facility] [Primary Care Provider] - Follow up as needed
[2019-09-11 11:01] LABS: ABSOLUTE EOSINOPHILS # (AUTO) 0.1 10^3/uL (0.0-0.6); ABSOLUTE LYMPHOCYTES (AUTO) 2.3 10^3/uL (0.5-4.7); ABSOLUTE MONOCYTES (AUTO) 0.2 10^3/uL (0.1-1.4); ABSOLUTE NEUT (AUTO) 2.9 10^3/uL (1.7-8.2); BASOPHILS % (AUTO) 0.6 % (0-2); EOSINOPHILS % (AUTO) 2.5 % (0-6); HEMATOCRIT 41.1 % (36.0-47.0); HEMOGLOBIN 14.4 g/dL (12.0-15.5); LYMPHOCYTES % (AUTO) 40.6 % (13-45); MEAN CORPUSCULAR HEMOGLOBIN 32.5 pg (27.0-33.4); MEAN CORPUSCULAR HGB CONC 35.1 g/dL (32.0-36.0); MEAN CORPUSCULAR VOLUME 93 fl (80-97); MONOCYTES % (AUTO) 4.3 % (3-13); PLATELET COUNT 185 10^3/uL (150-450); RED BLOOD COUNT 4.43 10^6/uL (3.72-5.28); RED CELL DISTRIBUTION WIDTH 12.9 % (11.5-14.0); TOTAL CELLS COUNTED % (AUTO) 100 %; WHITE BLOOD COUNT 5.6 10^3/uL (4.0-10.5)
[2019-09-11 11:15] LABS: APPEARANCE,URINE CLEAR; BILIRUBIN,URINE NEGATIVE (NEGATIVE); COLOR,URINE YELLOW; GLUCOSE, URINE NEGATIVE (NEGATIVE); KETONES,URINE NEGATIVE (NEGATIVE); LEUKOCYTE ESTERASE,URINE NEGATIVE (NEGATIVE); NITRITE,URINE NEGATIVE (NEGATIVE); PROTEIN,URINE NEGATIVE (NEGATIVE); URINE SPECIFIC GRAVITY 1.016; UROBILINOGEN,URINE NEGATIVE mg/dL (<2.0)
--- NOTE | 2019-09-11 11:21 | RADIOLOGY REPORT (SQ) ---
EXAM DESCRIPTION: CT ABD/PELVIS NO ORAL OR IV COMPLETED DATE/TIME: 09/11/2019 9:52 am REASON FOR STUDY: left flank pain kidney stone hx. Left lower quadrant pain. Prior appendectomy and hysterectomy. COMPARISON: 06/26/2019. 03/10/2019. TECHNIQUE: CT scan of the abdomen and pelvis performed without intravenous or oral contrast. Images reviewed with lung, soft tissue, and bone windows. Reconstructed coronal and sagittal MPR images revi ewed. All images stored on PACS. All CT scanners at this facility use dose modulation, iterative reconstruction, and/or weight based d osing when appropriate to reduce radiation dose to as low as reasonably achievable (ALARA). [facility]: Dose Right [facility]: CareDose [facility]: Dose Right [facility]: Teradose 4D [facility]: Cuff-Protect RADIATION DOSE: CT Rad equipment meets quality standard of care and radiation dose reduction techniq ues were employed. CTDIvol: 4.8 mGy. DLP: 241 mGy-cm.mGy. LIMITATIONS: None. FINDINGS: LOWER CHEST: No significant findings. No nodules or infiltrates. NON-CONTRASTED LIVER, SPLEEN, ADRENALS: Evaluation limited by lack of IV contrast. No identified sign ificant masses. PANCREAS: No masses. No peripancreatic inflammatory changes. GALLBLADDER: No identified stones by CT criteria. No inflammatory changes to suggest cholecystitis. RIGHT KIDNEY AND URETER: No suspicious masses. Assessment limited by lack of IV contrast. No signif icant calcifications. No hydronephrosis or hydroureter. LEFT KIDNEY AND URETER: No suspicious masses. Assessment limited by lack of IV contrast. No signifi cant calcifications. No hydronephrosis or hydroureter. AORTA AND RETROPERITONEUM: No aneurysm. No retroperitoneal masses or adenopathy. BOWEL AND PERITONEAL CAVITY: No obvious masses or inflammatory changes. No free fluid. APPENDIX: Normal. PELVIS, BLADDER, AND ABDOMINAL WALL:No abnormal masses. No free fluid. Bladder normal. BONES: No significant findings. OTHER: No other significant finding. IMPRESSION: NO SIGNIFICANT OR ACUTE PROCESS IN THE ABDOMEN OR PELVIS. COMMENT: Quality ID # [id number]: Final reports with documentation of one or more dose reduction techniques (e.g., Automated exposure control, adjustment of the mA and/or kV according to patient size, use of iterative reconstruction technique) TECHNICAL DOCUMENTATION: JOB ID: [id number] [employer]- All Rights Reserved Reading location - IP/workstation name: [email or web address]
[2019-09-11 11:23] LABS: ANION GAP 7 (5-19); BLOOD UREA NITROGEN 10 mg/dL (7-20); CALCIUM 9.8 mg/dL (8.4-10.2); CARBON DIOXIDE 27 mmol/L (22-30); CHLORIDE 106 mmol/L (98-107); GLUCOSE 92 mg/dL (75-110)
--- NOTE | 2019-09-11 13:10 | ER Document Report ---
ED General - General Chief Complaint: Back Pain Stated Complaint: BACK PAIN Time Seen by Provider: 09/11/19 10:30 Primary Care Provider: GILMAR NEWMAN,JOSE DE JESUS [Primary Care Provider] - Follow up as needed Notes: Patient is a 49-year-old white female with a past medical history of kidney stones who presents to the emergency department with a chief complaint of left flank pain that began yesterday. She states it was located in the left posterior mid back. States she tried to ignore it and this morning was still having some discomfort and began with burning painful urination. States this feels similar to the last time she had a stone. She reports last when she passed on her own without complication or problem. She denies any abdominal pain, fever, nausea vomiting, diarrhea, vaginal bleeding or discharge. TRAVEL OUTSIDE OF THE [place] IN LAST 30 DAYS: No - Related Data Allergies/Adverse Reactions: No Known Allergies Allergy (Verified 06/26/19 17:52) Past Medical History - Social History Smoking Status: Current Every Day Smoker Chew tobacco use (# tins/day): No Frequency of alcohol use: Rare Drug Abuse: None Family History: Reviewed & Not Pertinent Patient has suicidal ideation: No Patient has homicidal ideation: No Renal/ Medical History: Reports: Hx Kidney Stones. Denies: Hx Peritoneal Dialysis Malignancy Medical History: Reports: Hx Cervical Cancer Past Surgical History: Reports: Hx Appendectomy, Hx Hysterectomy Review of Systems - Review of Systems Gastrointestinal: denies: Abdominal pain Genitourinary: Dysuria, Flank pain -: Yes All other systems reviewed and negative Physical Exam - Vital signs Vitals: Temp Pulse Resp BP Pulse Ox 98.0 F 65 16 135/87 H 100 09/11/19 10:05 09/11/19 10:05 09/11/19 10:05 09/11/19 10:05 09/11/19 10:05 - General General appearance: Appears well, Alert - Respiratory Respiratory status: No respiratory distress Chest status: Nontender Breath sounds: Normal Chest palpation: Normal - Cardiovascular Rhythm: Regular Heart sounds: Normal auscultation - Abdominal Inspection: Normal Distension: No distension Bowel sounds: Normal Tenderness: Nontender Organomegaly: No organomegaly - Back Back: Normal, Nontender. No: CVA tenderness - Neurological Neuro grossly intact: Yes Cognition: Normal Orientation: AAOx4 [place] Coma Scale Eye Opening: Spontaneous [place] Coma Scale Verbal: Oriented [place] Coma Scale Motor: Obeys Commands [place] Coma Scale Total: 15 Speech: Normal Sensory: Normal - Psychological Associated symptoms: Normal affect, Normal mood - Skin Skin Temperature: Warm Skin Moisture: Dry Skin Color: Normal Course - Re-evaluation Re-evalutation: 09/11/19 13:08 CT scan negative for any acute process per radiologist. Patient has some he maturia. Her history, physical and laboratory and radiology findings consistent with a missed stone. Suspect the patient has passed a stone already. Will prescribe Pyridium, encouraged to push clear fluids. Discussed with her the importance of outpatient follow-up and advised that she return here or any ER immediately with any new, persistent or worsening symptoms. She verbalized understood and agreed. - Vital Signs Vital signs: Temp Pulse Resp BP Pulse Ox 98.0 F 65 16 135/87 H 100 09/11/19 10:05 09/11/19 10:05 09/11/19 10:05 09/11/19 10:05 09/11/19 10:05 - Laboratory Result Diagrams: 09/11/19 10:37 09/11/19 10:37 Laboratory results interpreted by me: 09/11/19 10:05 Urine Blood SMALL H Discharge - Discharge Clinical Impression: Flank pain, Missed kidney stone Hematuria Qualifiers: Hematuria type: unspecified type Qualified Code(s): R31.9 - Hematuria, unspecified Disposition: HOME, SELF-CARE Instructions: Hematuria ([facility]) Additional Instructions: Follow-up with your regular doctor in 2 to 3 days for reevaluation. Return here or any ER immediately with any new, persistent or worsening symptoms. Prescriptions: Phenazopyridine HCl [Pyridium 200 mg Tablet] 200 mg PO TID #15 tablet [facility]errals: [facility] [Primary Care Provider] - Follow up as needed
[2019-09-11 13:32] VITALS: BP 130/79
== END 2019-09-11 13:35 | disposition home or self-care (01) ==
LOC: ER 09:21
DX: N20.0 Calculus of kidney (principal); R31.9 Hematuria, unspecified; M54.9 Dorsalgia, unspecified; R10.9 Unspecified abdominal pain; F17.200 Nicotine dependence, unspecified, uncomplicated
CPT/HCPCS: 99284; 96374; 96375; 36415; 85025; 80048; 81001; 74176; J1885; J2405

== ENCOUNTER 2020-04-17 16:52 | Emergency (ER) | payer MEDICAID, OTHER ==
[2020-04-17] MEDS ORDERED: METHOCARBAMOL 500 MG TABLET PO ONE (17:21)
--- NOTE | 2020-04-17 17:27 | ER Document Report ---
HPI - HPI Time Seen by Provider: 04/17/20 17:18 Context: Patient is a 49-year-old female who presents emergency department with a chief complaint of left shoulder pain. Patient states that she was moving bends at her house yesterday. She took some naproxen to help with her pain. Patient sta sher that it only helped a little bit. Patient states that she always feels a "grinding" feeling in her shoulder. Patient states that she has history of small tears in her right shoulder. She has been to physical therapy for this. Patient states that she has a tingling sensation in her left arm. - ROS Systems Reviewed and Negative: Yes All other systems reviewed and negative - CONSTITUTIONAL Constitutional: DENIES: Fever, Chills - REPRODUCTIVE Reproductive: DENIES: : - MUSCULOSKELETAL Musculoskeletal: REPORTS: Extremity pain - Left shoulder. DENIES: Swelling - DERM Skin Color: Normal Skin Problems: None Past Medical History - General Information source: Patient - Social History Smoking Status: Current Every Day Smoker Family History: Reviewed & Not Pertinent Renal/ Medical History: Reports: Hx Kidney Stones. Denies: Hx Peritoneal Dialysis Malignancy Medical History: Reports: Hx Cervical Cancer Past Surgical History: Reports: Hx Appendectomy, Hx Hysterectomy Vertical Provider Document - CONSTITUTIONAL Agree With Documented VS: Yes Exam Limitations: No Limitations General Appearance: No Apparent Distress - INFECTION CONTROL TRAVEL OUTSIDE OF THE [place] IN LAST 30 DAYS: No - HEENT HEENT: Atraumatic, Normocephalic, PERRLA - NECK Neck: Normal Inspection - RESPIRATORY Respiratory: No Respiratory Distress - CARDIOVASCULAR Cardiovascular: Regular Rate, Regular Rhythm Pulses: Normal: Radial - MUSCULOSKELETAL/EXTREMETIES Musculoskeletal/Extremeties: Tender - Left shoulder, No Edema. negative: FROM - Decreased to left shoulder - NEURO Level of Consciousness: Awake, Alert, Appropriate Motor/Sensory: No Motor Deficit, No Sensory Deficit - DERM Integumentary: Warm, Dry, No Rash Course - Re-evaluation Re-evalutation: 04/17/20 18:53 Shoulder x-ray is unremarkable. Capillary refill less than 3 seconds. Radial pulse 2+. No vascular compromise noted. Patient will follow-up with orthopedics if she continues to have pain. Advised her to follow-up with her primary care provider and get a referral out for physical therapy. Follow-up precautions were given. Verbal discharge instructions were given to the patient. They verbalized understanding. They are stable for discharge. Discharge - Discharge Clinical Impression: Shoulder pain Qualifiers: Chronicity: acute Laterality: left Qualified Code(s): M25.512 - Pain in left shoulder Condition: Stable Disposition: HOME, SELF-CARE Additional Instructions: You were seen today in the emergency department for left shoulder pain. Your x- ray was normal did not show any abnormalities. Use the sling. Rest your arm. You can apply ice or heat as needed. Take Flexeril as needed for muscle aches. Continue to take Aleve as directed on the bottle. Follow-up with orthopedics as needed. I highly recommend that you go to physical therapy first. Prescriptions: Cyclobenzaprine HCl [Flexeril 10 mg Tablet] 10 mg PO TIDP PRN #20 tab PRN Reason: Forms: Return to Work Referrals: [facility] [NO LOCAL MD] - Follow up in 1 week
--- NOTE | 2020-04-17 17:49 | RADIOLOGY REPORT (SQ) ---
EXAM DESCRIPTION: SHOULDER LEFT 2 OR MORE VIEWS IMAGES COMPLETED DATE/TIME: 04/17/2020 5:39 pm REASON FOR STUDY: Left shoulder pain COMPARISON: None. NUMBER OF VIEWS: Three views. TECHNIQUE: Internal rotation, external rotation, and Y view images acquired of the left shoulder. LIMITATIONS: None. FINDINGS: MINERALIZATION: Normal. BONES: No acute fracture. No worrisome bone lesions. JOINTS: No dislocation. VISUALIZED LUNGS AND RIBS: No pneumothorax. No rib fracture. SOFT TISSUES: No radiopaque foreign body. OTHER: No other significant finding. IMPRESSION: NEGATIVE STUDY OF THE LEFT SHOULDER. NO RADIOGRAPHIC EVIDENCE OF ACUTE INJURY. TECHNICAL DOCUMENTATION: JOB ID: [id number] 2010 [employer]- All Rights Reserved Reading location - IP/workstation name: [email or web address]
[2020-04-17 19:11] VITALS: BP 144/87
== END 2020-04-17 20:27 | disposition home or self-care (01) ==
LOC: ER 16:52
DX: M25.512 Pain in left shoulder (principal); R20.2 Paresthesia of skin; F17.200 Nicotine dependence, unspecified, uncomplicated; Z85.41 Personal history of malignant neoplasm of cervix uteri
CPT/HCPCS: 99283; 73030; J3490

== ENCOUNTER 2020-08-04 14:37 | Emergency (ER) | payer SELFPAY ==
[2020-08-04] MEDS ORDERED: KETOROLAC TROMETHAMINE 60 MG/2 ML SDV IM ONE ×2 (16:05→20:30)
[2020-08-04] MEDS ORDERED: ONDANSETRON 4 MG TAB.RAPDIS PO ONE ×2 (16:05→20:30)
--- NOTE | 2020-08-04 16:06 | ER Document Report ---
ED Medical Screen (RME) - General Chief Complaint: Back Pain Stated Complaint: BACK PAIN Time Seen by Provider: 08/04/20 16:03 Mode of Arrival: Ambulatory Information source: Patient Notes: HPI; 50-year-old female presents to the emergency room with sharp stabbing left flank pain that started earlier today. Complains of nausea but no vomiting. No fevers. No urinary symptoms. Does have a history of kidney stones. Took Advil earlier today without relief. PE: Alert and oriented x3. Lungs: Clear to auscultation without rales, rhonchi, wheezes. Heart: Regular rate rhythm without murmurs, rubs, gallops. Positive for left CVA tenderness. I have greeted and performed a rapid initial assessment of this patient. A comprehensive ED assessment and evaluation of the patient, analysis of test results and completion of the medical decision making process will be conducted by additional ED providers. I have specifically instructed the patient or family members with the patient to immediately return to any nursing staff should anything change in the patient's condition or with their chief complaint. TRAVEL OUTSIDE OF THE [place] IN LAST 30 DAYS: No - Related Data Allergies/Adverse Reactions: No Known Allergies Allergy (Verified 06/26/19 17:52) Past Medical History Renal/ Medical History: Reports: Hx Kidney Stones. Denies: Hx Peritoneal Dialysis Malignancy Medical History: Reports: Hx Cervical Cancer Past Surgical History: Reports: Hx Appendectomy, Hx Hysterectomy Physical Exam - Vital signs Vitals: Temp Pulse Resp BP Pulse Ox 97.9 F 83 16 121/86 H 99 08/04/20 15:27 08/04/20 15:27 08/04/20 15:27 08/04/20 15:27 08/04/20 15:27 Course - Vital Signs Vital signs: Temp Pulse Resp BP Pulse Ox 97.9 F 83 16 121/86 H 99 08/04/20 15:27 08/04/20 15:27 08/04/20 15:27 08/04/20 15:27 08/04/20 15:27
--- NOTE | 2020-08-04 16:35 | RADIOLOGY REPORT (SQ) ---
EXAM DESCRIPTION: CT ABD/PELVIS NO ORAL OR IV IMAGES COMPLETED DATE/TIME: 08/04/2020 1:17 pm REASON FOR STUDY: flank pain COMPARISON: 09/11/2019 TECHNIQUE: CT scan of the abdomen and pelvis performed without intravenous or oral contrast. Images reviewed with lung, soft tissue, and bone windows. Reconstructed coronal and sagittal MPR images revi ewed. All images stored on PACS. All CT scanners at this facility use dose modulation, iterative reconstruction, and/or weight based d osing when appropriate to reduce radiation dose to as low as reasonably achievable (ALARA). [facility]: Dose Right [facility]: CareDose [facility]: Dose Right [facility]: Teradose 4D [facility]: [employer] RADIATION DOSE: CT Rad equipment meets quality standard of care and radiation dose reduction techniq ues were employed. CTDIvol: 4.8 mGy. DLP: 228 mGy-cm.mGy. LIMITATIONS: Suboptimal evaluation of the vasculature and solid organs due to lack of IV contrast. FINDINGS: LOWER CHEST: No basilar consolidation. NON-CONTRASTED LIVER, SPLEEN, ADRENALS: Evaluation limited by lack of IV contrast. No identified sign ificant masses. PANCREAS: No masses. No peripancreatic inflammatory changes. GALLBLADDER: No identified stones by CT criteria. No inflammatory changes to suggest cholecystitis. RIGHT KIDNEY AND URETER: No suspicious masses. Assessment limited by lack of IV contrast. No signif icant calcifications. No hydronephrosis or hydroureter. LEFT KIDNEY AND URETER: No suspicious masses. Assessment limited by lack of IV contrast. No signifi cant calcifications. No hydronephrosis or hydroureter. AORTA AND RETROPERITONEUM: No aneurysm. No retroperitoneal masses or adenopathy. BOWEL AND PERITONEAL CAVITY: Some mild stranding in the right abdomen adjacent to the ascending colon and some small bowel loops. No bowel obstruction. No other significant inflammatory change. APPENDIX: Surgically absent. PELVIS, BLADDER, AND ABDOMINAL WALL:Status posthysterectomy. No adnexal mass. Urinary bladder is un remarkable. BONES: No significant findings. OTHER: No other significant finding. IMPRESSION: 1. Some mild fat stranding in the right abdomen adjacent to the ascending colon and sma ll bowel loops. Correlate with any symptoms of enterocolitis. No bowel obstruction. 2. No other acute abnormality on noncontrast CT of the abdomen and pelvis. COMMENT: Quality ID # [id number]: Final reports with documentation of one or more dose reduction techniques (e.g., Automated exposure control, adjustment of the mA and/or kV according to patient size, use of iterative reconstruction technique) TECHNICAL DOCUMENTATION: JOB ID: [id number] 2010 [employer]- All Rights Reserved Reading location - IP/workstation name: [email or web address]
[2020-08-04 16:58] LABS: ABSOLUTE EOSINOPHILS # (AUTO) 0.1 10^3/uL (0.0-0.6); ABSOLUTE LYMPHOCYTES (AUTO) 2.7 10^3/uL (0.5-4.7); ABSOLUTE MONOCYTES (AUTO) 0.4 10^3/uL (0.1-1.4); BASOPHILS % (AUTO) 0.6 % (0-2); EOSINOPHILS % (AUTO) 1.8 % (0-6); HEMATOCRIT 42.9 % (36.0-47.0); HEMOGLOBIN 15.4 g/dL (12.0-15.5); LYMPHOCYTES % (AUTO) 37.6 % (13-45); MEAN CORPUSCULAR HEMOGLOBIN 32.8 pg (27.0-33.4); MEAN CORPUSCULAR HGB CONC 35.9 g/dL (32.0-36.0); MEAN CORPUSCULAR VOLUME 91 fl (80-97); MONOCYTES % (AUTO) 5.2 % (3-13); PLATELET COUNT 210 10^3/uL (150-450); RED BLOOD COUNT 4.69 10^6/uL (3.72-5.28); RED CELL DISTRIBUTION WIDTH 12.9 % (11.5-14.0); SEGMENTED NEUTROPHILS % (AUTO) 54.8 % (42-78); TOTAL CELLS COUNTED % (AUTO) 100 %; WHITE BLOOD COUNT 7.3 10^3/uL (4.0-10.5)
[2020-08-04 17:13] LABS: ALBUMIN 5.1 g/dL (3.5-5.0); ALKALINE PHOSPHATASE 71 U/L (38-126); ANION GAP 9 (5-19); ASPARTATE AMINO TRANSFERASE 56 U/L (14-36); BILIRUBIN,DIRECT 0.2 mg/dL (0.0-0.4); BILIRUBIN,TOTAL 0.5 mg/dL (0.2-1.3); BLOOD UREA NITROGEN 18 mg/dL (7-20); CALCIUM 10.7 mg/dL (8.4-10.2); CARBON DIOXIDE 28 mmol/L (22-30); CHLORIDE 101 mmol/L (98-107); GLUCOSE 86 mg/dL (75-110); POTASSIUM 5.4 mmol/L (3.6-5.0); TOTAL PROTEIN 8.2 g/dL (6.3-8.2)
[2020-08-04 17:19] LABS: APPEARANCE,URINE CLEAR; BILIRUBIN,URINE NEGATIVE (NEGATIVE); COLOR,URINE YELLOW; GLUCOSE, URINE NEGATIVE (NEGATIVE); KETONES,URINE NEGATIVE (NEGATIVE); LEUKOCYTE ESTERASE,URINE NEGATIVE (NEGATIVE); NITRITE,URINE NEGATIVE (NEGATIVE); PROTEIN,URINE NEGATIVE (NEGATIVE); URINE SPECIFIC GRAVITY 1.015; UROBILINOGEN,URINE NEGATIVE mg/dL (<2.0)
--- NOTE | 2020-08-04 22:36 | ER Document Report ---
ED General - General Chief Complaint: Flank Pain Stated Complaint: BACK PAIN Time Seen by Provider: 08/04/20 16:03 Primary Care Provider: [facility] PATY,JOSE DE JESUS [Primary Care Provider] - Follow up as needed Mode of Arrival: Ambulatory Information source: Patient Notes: Patient presents to the ER for evaluation of left lower back pain radiating to the left flank that began earlier today. She denies fever. She denies nausea or vomiting. She denies dysuria. She denies increased urinary frequency. She states she does have a history of kidney stones. She states she took some ibuprofen earlier without relief. Nursing notes reviewed and past medical, social, and family histories reviewed and validated. TRAVEL OUTSIDE OF THE [place] IN LAST 30 DAYS: No - Related Data Allergies/Adverse Reactions: No Known Allergies Allergy (Verified 06/26/19 17:52) Past Medical History - General Information source: Patient - Social History Smoking Status: Current Every Day Smoker Chew tobacco use (# tins/day): No Frequency of alcohol use: None Drug Abuse: None Lives with: Alone Family History: Reviewed & Not Pertinent Patient has suicidal ideation: No Patient has homicidal ideation: No - Past Medical History Cardiac Medical History: Reports: None Pulmonary Medical History: Reports: None EENT Medical History: Reports: None Neurological Medical History: Reports: None Endocrine Medical History: Reports: None Renal/ Medical History: Reports: Hx Kidney Stones. Denies: Hx Peritoneal Dialysis Malignancy Medical History: Reports: Hx Cervical Cancer GI Medical History: Reports: None Musculoskeletal Medical History: Reports None Skin Medical History: Reports None Psychiatric Medical History: Reports: None Traumatic Medical History: Reports: None Infectious Medical History: Reports: None Past Surgical History: Reports: Hx Appendectomy, Hx Hysterectomy - Immunizations Immunizations up to date: Yes Hx Diphtheria, Pertussis, Tetanus Vaccination: Yes Review of Systems - Review of Systems Notes: Constitutional: Negative for fever. HENT: Negative for sore throat. Eyes: Negative for visual changes. Cardiovascular: Negative for chest pain. Respiratory: Negative for shortness of breath. Gastrointestinal: Negative for abdominal pain, vomiting or diarrhea. Genitourinary: Negative for dysuria. Positive for flank pain. Musculoskeletal: Positive for low back pain. Skin: Negative for rash. Neurological: Negative for headaches, weakness or numbness. 10 point ROS negative except as marked above and in HPI. Physical Exam - Vital signs Vitals: Temp Pulse Resp BP Pulse Ox 97.9 F 83 16 121/86 H 99 08/04/20 15:27 08/04/20 15:27 08/04/20 15:27 08/04/20 15:27 08/04/20 15:27 - Notes Notes: CONSTITUTIONAL: Well appearing. No acute distress. SKIN: Warm, dry, and intact without rash EYES: Extraocular movements are grossly intact, clear conjunctiva HENT: Normocephalic, atraumatic, moist mucus membranes NECK: No obvious swelling, normal range of motion PULMONARY: Normal chest rise and fall. Breath sounds clear and equal bilaterally. No respiratory distress or stridor CARDIOVASCULAR: Regular rate. No murmurs, rubs, gallops. Distal extremities are warm and well perfused. ABDOMINAL: Soft, nontender NEUROLOGIC: Normal speech, moves all extremities. Cranial nerves are within normal limits. Manager Fund strength strong and equal in the upper extremities bilaterally. There is good strength and sensation in bilateral lower extremities. There is no arm or leg drift noted. MUSCULOSKELETAL: Mild tenderness palpation over the left paravertebral lumbar muscles. No spinal tenderness noted. PSYCHIATRIC: Normal mood and affect Course - Re-evaluation Re-evalutation: 08/04/20 22:42 Rechecked patient who has responded well to treatment in the ER. Discussed with patient: results, diagnosis, treatment plan, and need for follow-up. Return to the emergency department warnings were given. All questions and concerns were addressed. The plan is agreed with and understood. Patient is stable and ready for discharge. - Vital Signs Vital signs: Temp Pulse Resp BP Pulse Ox 97.8 F 76 17 125/93 H 99 08/04/20 19:53 08/04/20 19:51 08/04/20 19:51 08/04/20 19:51 08/04/20 19:51 - Laboratory Results Result Diagrams: 08/04/20 16:32 08/04/20 16:32 Laboratory Results Interpreted: 08/04/20 08/04/20 16:32 16:32 Potassium 5.4 H Calcium 10.7 H AST 56 H ALT 41 H Albumin 5.1 H Urine Blood SMALL H Critical Laboratory Results Reviewed: No Critical Results - Radiology Results Critical Radiology Results Reviewed: No Critical Results Discharge - Discharge Clinical Impression: Left flank pain Low back pain Qualifiers: Chronicity: acute Back pain laterality: left Sciatica presence: without sciatica Qualified Code(s): M54.5 - Low back pain Condition: Stable Disposition: HOME, SELF-CARE Instructions: Low Back Pain ([facility]) Additional Instructions: Follow-up with your primary care doctor in 2 to 3 days for recheck. Return to the emergency room if your symptoms change or worsen. Prescriptions: Hydrocodone/Acetaminophen [[place] 5-325 mg Tablet] 1 tab PO Q6HP PRN 3 Days #12 tablet PRN Reason: For Pain Referrals: [facility] [Primary Care Provider] - Follow up as needed
[2020-08-04 22:51] VITALS: BP 142/89
== END 2020-08-04 22:55 | disposition home or self-care (01) ==
LOC: ER 14:37
DX: R10.9 Unspecified abdominal pain (principal); M54.5 Low back pain; F17.200 Nicotine dependence, unspecified, uncomplicated; Z85.41 Personal history of malignant neoplasm of cervix uteri; Z90.710 Acquired absence of both cervix and uterus; Z90.49 Acquired absence of other specified parts of digestive tract
CPT/HCPCS: 99285; 96372; 36415; 85025; 80053; 81001; 74176; J1885; S0119